=== PATIENT | female | born 1935 | race Caucasian/White ===

== ENCOUNTER 2023-10-10 14:27 | Emergency (ER) | payer OTHER ==
[~2023-10-10] VITALS: Ht 162.6 cm; Wt 74.8 kg
[2023-10-10] MEDS ORDERED: DENO60DI SUBCUT (14:44)
[2023-10-10] MEDS ORDERED: ATOR10TA PO (14:44)
[2023-10-10] MEDS ORDERED: HYDR25TA4 PO (14:44)
[2023-10-10] MEDS ORDERED: LOSA100T31 PO (14:44)
[2023-10-10] MEDS ORDERED: METO25TA6 PO (14:44)
[2023-10-10] MEDS ORDERED: AMLO2.5T4 PO (14:44)
[2023-10-10] MEDS ORDERED: OMEP20TA5 PO (14:44)
[2023-10-10] MEDS ORDERED: LEVO88TA5 PO (14:44)
[2023-10-10 15:34] LABS: *BILIRUBIN,URIN NEGATIVE (NEGATIVE); *BLOOD, URINE NEGATIVE (NEGATIVE); *CLARITY,URINE CLEAR (CLEAR); *COLOR,URINE YELLOW (YELLOW); *KETONES,URINE NEGATIVE (NEGATIVE); *PROTEIN,URINE 1+ (NEGATIVE); *UROBILINOGEN,URINE 0.2 E.U./dl (NORMAL); LEUKOCYTE ESTERASE ,URINE NEGATIVE (NEGATIVE); NITRITE, URINE NEGATIVE (NEGATIVE); PH,URINE 7.5 (5.0-8.0); UGLUCOSE NEGATIVE (NEGATIVE)
[2023-10-10] MEDS ORDERED: HYDROCODONE/APAP 5-325MG TABLET PO ONE (16:30)
[2023-10-10] MEDS ORDERED: HYDROCODONE/APAP 5-325MG TABLET ONE (16:36)
[2023-10-10] MEDS ORDERED: HYDR-3980 PO (17:09)
[2023-10-10 18:02] VITALS: BP 122/70; TEMP 98; O2SAT 99
== END 2023-10-10 18:03 | disposition home or self-care (01) ==
LOC: ER 14:27
DX: Z04.1 Encounter for examination and observation following transport accident (principal); M54.2 Cervicalgia; Z79.899 Other long term (current) drug therapy; Z88.5 Allergy status to narcotic agent; Z88.2 Allergy status to sulfonamides; V43.02XA Car driver injured in collision with other type car in nontraffic accident, initial encounter; Y93.89 Activity, other specified; Y92.89 Other specified places as the place of occurrence of the external cause; Y99.8 Other external cause status
CPT/HCPCS: 72125; 72131; 72170; 73560; A4606; A4663